=== PATIENT | female | born 1950 | race Caucasian/White ===

== ENCOUNTER 2022-11-02 11:54 | Outpatient (CLI) | payer MEDICARE, BC ==
[2022-11-02] MEDS ORDERED: Iopamidol 370 76% 100 ML VIAL ONE (12:55)
== END 2022-11-02 11:55 | disposition home or self-care (01) ==
LOC: CSHCT 11:54
PROVIDERS: ATTEND Internal Medicine
DX: R31.0 Gross hematuria (principal); N28.89 Other specified disorders of kidney and ureter; E27.8 Other specified disorders of adrenal gland; K44.9 Diaphragmatic hernia without obstruction or gangrene; K57.30 Diverticulosis of large intestine without perforation or abscess without bleeding
CPT/HCPCS: 74178; Q9967

== ENCOUNTER 2022-11-19 10:09 | Outpatient (CLI) | payer MEDICARE, BC ==
[~2022-11-19 10:09] MED LIST: Iopamidol 300 61% 100 ML VIAL FS ONE
== END 2022-11-19 10:10 | disposition home or self-care (01) ==
LOC: CSHCT 10:09
PROVIDERS: ATTEND Internal Medicine
DX: E27.8 Other specified disorders of adrenal gland (principal); D35.02 Benign neoplasm of left adrenal gland
CPT/HCPCS: 74170; Q9967

== ENCOUNTER 2023-05-12 07:56 | Outpatient (CLI) | payer MEDICARE | END 2023-05-12 07:57 | disposition home or self-care (01) | LOC: CSHCT 07:56 | PROVIDERS: ATTEND Urology | DX: R91.1 Solitary pulmonary nodule (principal); Z90.5 Acquired absence of kidney; R91.8 Other nonspecific abnormal finding of lung field | CPT/HCPCS: 71260 ==

== ENCOUNTER 2023-11-02 08:01 | Outpatient (CLI) | payer MEDICARE | END 2023-11-02 08:02 | disposition home or self-care (01) | LOC: CSHCT 08:01 | PROVIDERS: ATTEND Internal Medicine | DX: C64.1 Malignant neoplasm of right kidney, except renal pelvis (principal) | CPT/HCPCS: 71260; 74177; 82565 ==

== ENCOUNTER 2024-02-15 08:23 | Outpatient (CLI) | payer MEDICARE ==
[2024-02-15] MEDS ORDERED: Iopamidol 370 76% 100 ML VIAL ONE (08:50)
== END 2024-02-15 08:24 | disposition home or self-care (01) ==
LOC: CSHCT 08:23
PROVIDERS: ATTEND Internal Medicine
DX: C64.1 Malignant neoplasm of right kidney, except renal pelvis (principal); R91.8 Other nonspecific abnormal finding of lung field; Z90.5 Acquired absence of kidney; E27.8 Other specified disorders of adrenal gland
CPT/HCPCS: 36415; 71260; 74177; 76937; 82565

== ENCOUNTER 2024-05-15 10:16 | Outpatient (CLI) | payer MEDICARE | END 2024-05-15 10:17 | disposition home or self-care (01) | LOC: CSHMAMMO 10:16 | PROVIDERS: ATTEND Nurse Practitioner | DX: Z78.0 Asymptomatic menopausal state (principal) | CPT/HCPCS: 77080 ==

== ENCOUNTER 2024-06-11 08:32 | Outpatient (CLI) | payer MEDICARE | END 2024-06-11 08:33 | disposition home or self-care (01) | LOC: CSHCT 08:32 | PROVIDERS: ATTEND Orthopaedic Surgery | DX: Z01.818 Encounter for other preprocedural examination (principal); M17.12 Unilateral primary osteoarthritis, left knee ==

== ENCOUNTER 2024-10-17 08:28 | Outpatient (CLI) | payer MEDICARE | END 2024-10-17 08:29 | disposition home or self-care (01) | LOC: CSHCT 08:28 | PROVIDERS: ATTEND Orthopaedic Surgery | DX: Z01.818 Encounter for other preprocedural examination (principal); M17.11 Unilateral primary osteoarthritis, right knee | CPT/HCPCS: 71046; 80048; 81001; 85025; 85610; 87081 ==

== ENCOUNTER 2025-02-06 09:39 | Outpatient (CLI) | payer MEDICARE ==
[2025-02-06 10:55] LABS: Estimated GFR - POC 60.0
[2025-02-06] MEDS ORDERED: Iopamidol 300 61% 100 ML VIAL FS ONE (12:41)
== END 2025-02-06 09:40 | disposition home or self-care (01) ==
LOC: CSHCT 09:39
PROVIDERS: ATTEND Internal Medicine
DX: Z85.528 Personal history of other malignant neoplasm of kidney (principal); E83.10 Disorder of iron metabolism, unspecified; R91.8 Other nonspecific abnormal finding of lung field
CPT/HCPCS: 71260; 74160; 82565